=== PATIENT | female | born 1990 | race Caucasian/White ===

== ENCOUNTER 2021-05-08 17:20 | Outpatient (CLI) | payer OTHER ==
[2021-05-08 18:30] LABS: Appearance,Urine Clear (Clear); Bilirubin,Urine Negative (Negative); Blood,Urine Negative (Negative); Color,Urine Light Yellow; Glucose,Urine (UA) Negative (Negative); Ketones,Urine 2+ (Negative); Leukocyte Esterase,Urine Negative (Negative); Nitrite,Urine Negative (Negative); PH, Urine 5.5 (5.0-8.0); Protein,Urine Negative (Negative); Urobilinogen,Urine <2.0 mg/dL (<2.0)
[2021-05-08 18:55] VITALS: BP 123/72; PULSE 118; RESP 18; TEMP 98.2
--- NOTE | 2021-05-14 07:04 | P.MSEPDOC ---
Presenting Problems - Arrival Data Date of Arrival on Unit: 05/08/21 Time of Arrival on Unit: 17:20 Mode of Transport: Ambulatory - Complaint OB-Reason for Admission/Chief Complaint: Pain Comment: lower abd pain. Medical History - Information : 3 Para: 2 Term: 2 : 0 Abortions: Spontaneous or Elective: 0 Number of Living Children: 2 - Gestational Age Gestational Age by REHAN (wks/days): 21 Weeks and 4 Days Review of Systems - Review of Systems Constitutional: No problems Breast: No problems ENT: No problems Cardiovascular: No problems Respiratory: No problems Gastrointestinal: No problems Genitourinary: No problems Musculoskeletal: No problems Neurological: No problems Skin: No problems Vital Signs - Temperature Temperature: 98.2 F Temperature Source: Temporal Artery Scan - Pulse Right Pulse Rate: 118 Pulse Assessment Method: Pulse Oximetry - Respirations Respiratory Rate: 18 Oxygen Delivery Method: Room Air O2 Sat by Pulse Oximetry: 98 - Blood Pressure Right Arm Blood Pressure: 123/72 Blood Pressure Mean: 89 Blood Pressure Source: Automatic Cuff Medical Screen Scoring - Assessment - Baby A NST: Reactive Physician Notification - Physician Notified Physician Notified Date: 05/08/21 Physician Notified Time: 18:10 Physician: Nel Petit Order Received: (UA and oral hydration.) - Notification Comment Comment: Physician called with UA results at 1844. Orders for discharge home with follow up instructions. Maternal Triage Index - Maternal Triage Index Presenting for scheduled procedure w/no complaint: No - Stat/Priority 1 Stat Priority 1: No - Urgent/Priority 2 Urgent Priority 2: No - Prompt/Priority 3 Prompt Priority 3: No - Non-Urgent/Priority 4 Non-Urgent Priority 4: Yes Criteria Met for Priority 4: lower abd pain. Disposition - Disposition OB Disposition: Discharge to home Discharge Date: 05/08/21 Discharge Time: 18:47 I agree with the RN Medical Screening Exam: Yes Case reviewed; plan agreed upon as documented in EMR&OBIX.: Yes Diagnosis: lower abdominal pain in
== END 2021-05-08 18:47 | disposition home or self-care (01) ==
LOC: FBPOP 17:20
PROVIDERS: ATTEND Obstetrics & Gynecology
DX: O26.92 Pregnancy related conditions, unspecified, second trimester (principal); Z3A.21 21 weeks gestation of pregnancy
CPT/HCPCS: 81003; G0463; 99213

== ENCOUNTER 2021-09-07 06:05 | Inpatient (IN) | payer OTHER ==
[2021-09-07] MEDS ORDERED: METHYLERGONOVINE 0.2 MG/ML 1 ML AMP IM PRN (06:20)
[2021-09-07] MEDS ORDERED: OXYTOCIN 10 UNIT/ML 1 ML VIAL IM PRN (06:20)
[2021-09-07] MEDS ORDERED: TERBUTALINE 1 MG/ML VIAL SQ PRN (06:20)
[2021-09-07] MEDS ORDERED: CARBOPROST TROMETHAMINE 250 MCG/ML 1 ML AMP IM PRN (06:20)
[2021-09-07] MEDS ORDERED: LIDOCAINE 0.5% (PF) 5 MG/ML (50 ML SDV) SQ PRN (06:20)
[2021-09-07] MEDS ORDERED: OXYTOCIN 30 UNITS/500 ML NS 30 UNIT in SALINE 1 500ML.BAG IV SCH ×2 (06:30→13:45)
[2021-09-07] MEDS: LACTATED RINGERS 1,000 ML IV SCH ×2 (06:53→11:40)
[2021-09-07 07:11] LABS: Anisocytosis Slight; Basophils % (A) 0 %; Eosinophils % (A) 1 %; HCT 33.6 % (34.0-46.0); Lymphocytes # (A) 2.1 k/uL (1.0-4.8); Lymphocytes % (A) 21 %; MCH 28.9 pg (25.0-35.0); MCHC 32.8 g/dL (31.0-37.0); MCV 88.3 fL (80.0-100.0); Mean Platelet Volume 13.3; Monocytes # (A) 0.5 k/uL (0-1.0); Monocytes % (A) 5 %; Neutrophils # (A) 6.8 k/uL (1.3-7.7); Neutrophils % (A) 71 %; Platelet Count 173 k/uL (150-450); RDW 16.3 % (11.5-15.5); WBC 9.6 k/uL (3.8-10.6)
[2021-09-07 08:31] LABS: Large Platelets Present
[2021-09-07] MEDS ORDERED: ROPIVACAINE 100 MG, fentaNYL (PF). 200 MCG in SODIUM CHLORIDE 0.9% 76 ML EPIDURAL ONE (12:30)
[2021-09-07] MEDS ORDERED: ACETAMINOPHEN TAB 325 MG TAB PO PRN (13:41)
[2021-09-07] MEDS ORDERED: LANOLIN CREAM 5 GM TUBE TOPICAL PRN (13:41)
[2021-09-07] MEDS ORDERED: diphenhydrAMINE 25 MG CAP PO PRN (13:41)
[2021-09-07] MEDS ORDERED: diphenhydrAMINE 50 MG/ML 1 ML VIAL IVP PRN ×2 (13:41)
[2021-09-07] MEDS ORDERED: BENZOCAINE/MENTHOL SPRAY 1 GM/SPRAY AEROSOL TOPICAL PRN (13:41)
[2021-09-07] MEDS ORDERED: HYDROCORTISONE 2.5% RECTAL CREAM 30 GM TUBE RECTAL PRN (13:41)
[2021-09-07] MEDS ORDERED: diphenhydrAMINE 50 MG CAP PO PRN (13:41)
[2021-09-07] MEDS ORDERED: SIMETHICONE 80 MG CHEWABLE PO PRN (13:41)
[2021-09-07] MEDS ORDERED: ZOLPIDEM 5 MG TAB PO PRN (13:41)
--- NOTE | 2021-09-07 13:45 | P.PROBDLV ---
Vaginal Delivery Note - . Vaginal Delivery Note: Findings: Viable female delivered at 1329, weight of 7 lbs. 0 oz., Apgars of 9 and 9 at one and 5 minutes respect weight. This is a 31-year-old 5 para 20-2 at 39-0/7 weeks that presented to labor and delivery for scheduled elective induction of labor. Patient was admitted to labor and delivery and Pitocin induction of labor was begun. Patient made good good progress through labor eventually becoming uncomfortable and requesting epidural placement. Patient did receive epidural was noted be 6 cm. Patient quickly progressed to complete began pushing. Patient was placed in the modified lithotomy position and with good maternal effort patient pushed the baby down to presentation. Amniotic sac was visualized, amniotomy when he was performed and clear fluid was obtained. With continued maternal effort the anterior/posterior shoulder were delivered along with the body which was placed on the maternal abdomen. Spontaneous cry was noted at . After two-minute delay the umbilical cord was doubly clamped and cut, and the placenta was delivered spontaneously intact with a three-vessel cord being noted. The placenta was inspected and found to be intact, small dark clot was appreciated on the maternal side. No vaginal lacerations were appreciated on inspection of the vaginal vault after delivery Patient and tolerated delivery well and are resting comfortably All counts noted be correct 2 at the end of the delivery.
--- NOTE | 2021-09-07 13:46 | P.HPOB ---
History of Present Illness H&P Date: 09/07/21 Chief Complaint: IUP at 39 0 This is a 31-year-old G5 para 2021 at 39 0/7 weeks of gestation that presents for elective induction of labor. Patient has been receiving routine care which has been essentially uncomplicated. Patient notes good movement denies vaginal bleeding or loss of fluid. On bloodwork this patient has a blood type of O+, rubella status immune, RPR nonreactive, HIV negative, group beta strep culture negative. Review of Systems Constitutional: Denies chills, Denies fatigue, Denies fever Ears, nose, mouth and throat: Denies headache Cardiovascular: Reports leg edema Respiratory: Denies dyspnea Gastrointestinal: Denies nausea, Denies vomiting Genitourinary: Reports Past Medical History Past Medical History: No Reported History History of Any Multi-Drug Resistant Organisms: None Reported Past Surgical History: Tonsillectomy Past Anesthesia/Blood Transfusion Reactions: No Reported Reaction Past Psychological History: No Psychological Hx Reported Smoking Status: Never smoker Past Alcohol Use History: None Reported Past Drug Use History: None Reported - Past Family History Mother Family Medical History: Hyperlipidemia, Hypertension Medications and Allergies Home Medications Medication Instructions Recorded Confirmed Type Pnv 11/Iron Fum/Folic Acid/Om3 1 each PO DAILY 05/08/21 09/07/21 History [Virt-Tristian Dha Softgel] Sennosides/Docusate Sodium [Senna 1 each PO DAILY PRN 09/07/21 09/07/21 History Plus 8.6-50 mg Tablet] Allergies Allergy/AdvReac Type Severity Reaction Status Date / Time Penicillins Allergy Rash/Hives Verified 09/07/21 06:19 Exam Osteopathic Statement: *. No significant issues noted on an osteopathic structural exam other than those noted in the History and Physical/Consult. Vital Signs Temp Pulse Resp BP Pulse Ox 09/07/21 06:30 97.5 F L 93 16 131/86 99 Intake and Output 09/06/21 09/07/21 09/07/21 22:59 06:59 14:59 Other: Weight 73.482 kg This is a late entry exam from 8:30 this morning. Targeted physical exam is performed in this date and raw stock drier tender a well-nourished well-developed female in no acute distress, breathing is noted to nonlabored, heart has a regular rate and rhythm, abdomen is gravid and appr opriate for gestational age, on cervical exam she is 3/60/-3 station amniotomy is attempted but unsuccessful. heart tones returned be category 1 and she is corby irregularly. Results Result Diagrams: 09/07/21 06:38 Abnormal Lab Results - Last 24 Hours (Table) 09/07/21 Range/Units 06:38 Hgb 11.0 L (11.4-16.0) gm/dL Hct 33.6 L (34.0-46.0) % RDW 16.3 H (11.5-15.5) % Assessment and Plan (1) Term Current Visit: Yes Status: Acute Code(s): Z34.90 - ENCNTR FOR SUPRVSN OF NORMAL , UNSP, UNSP TRIMESTER SNOMED Code(s): 30556422 Plan: 31-year-old 5 para 20-2 at 39-0/7 weeks that presents for induction of labor. Patient is admitted to labor and delivery and Pitocin induction of labor is begun. Amniotomy was attempted but unsuccessful. Patient does desire epidural when appropriate. Anticipate spontaneous vaginal delivery later today.
[2021-09-07] MEDS: IBUPROFEN 600 MG TAB PO SCH ×2 (18:01→20:52)
[2021-09-07] MEDS: SENNOSIDES-DOCUSATE SODIUM 1 EACH TAB PO SCH (20:22)
[2021-09-08] MEDS: IBUPROFEN 600 MG TAB PO SCH ×2 (00:57→08:14)
[2021-09-08] MEDS: LACTATED RINGERS 1,000 ML IV SCH ×2 (01:13→05:17)
[2021-09-08] MEDS: SENNOSIDES-DOCUSATE SODIUM 1 EACH TAB PO SCH (08:15)
--- NOTE | 2021-09-08 12:41 | P.DS ---
Providers Date of admission: 09/07/21 06:05 Expected date of discharge: 09/08/21 Attending physician: Lubna Anand Primary care physician: Stated None - Discharge Diagnosis(es) (1) Term Current Visit: Yes Status: Acute (2) Status post vaginal delivery Current Visit: Yes Status: Acute Hospital Course: This is a 31-year-old 5 now para 3023 that presented to labor and delivery yesterday at 39-0/7 weeks for elective induction of labor. Patient had been receiving routine care with myself which is been essentially uncomplicated. For full details of this patient please see the dictated history and physical. A she was admitted to labor and delivery and Pitocin induction of labor was begun. Amniotomy was attempted but unable to be performed secondary to high station. Patient progressed through labor eventually becoming uncomfortable and did request epidural placement. Epidural was placed without difficulty by the anesthesia department. Patient got moderately for her contractions. Patient quickly progressed to complete. Patient then had a normal spontaneous vaginal delivery of a viable female infant at 1329, weight of 7 lbs. 0 oz. Apgars of 9 and 9 were given at one and 5 minutes. No vaginal lacerations were appreciated during delivery. Patient's course has been uneventful. On this day #1 she is ambulating and voiding without difficulty. She is tolerating a regular diet without nausea or vomiting. She states her pain is well-controlled. She would like discharge home at 24 hours. Patient Condition at Discharge: Good Plan - Discharge Summary New Discharge Prescriptions: No Action Pnv 11/Iron Fum/Folic Acid/Om3 [Virt-Tristian Dha Softgel] 1 each PO DAILY Sennosides/Docusate Sodium [Senna Plus 8.6-50 mg Tablet] 1 each PO DAILY PRN PRN Reason: Constipation Discharge Medication List Pnv 11/Iron Fum/Folic Acid/Om3 [Virt-Tristian Dha Softgel] 1 each PO DAILY 05/08/21 [History] Sennosides/Docusate Sodium [Senna Plus 8.6-50 mg Tablet] 1 each PO DAILY PRN 09/07/21 [History] Follow up Appointment(s)/Referral(s): Lubna Anand DO [Doctor of Osteopathic Medicine] - 4 Weeks Patient Instructions/Handouts: Vaginal Delivery (DC), Vaginal Delivery (GEN) Discharge Disposition: HOME SELF-CARE
[2021-09-08 13:44] VITALS: BP 114/62; PULSE 89; RESP 18; TEMP 98.2
== END 2021-09-08 13:55 | disposition home or self-care (01) | DRG 807 ==
LOC: 4FBP 06:05
PROVIDERS: ADMIT Obstetrics & Gynecology Obstetrics; ATTEND Obstetrics & Gynecology Obstetrics
PROC: 10E0XZZ Delivery of Products of Conception, External Approach (ICD-10-PCS; principal; 2021-09-07)
PROC: 4A0HXCZ Measurement of Products of Conception, Cardiac Rate, External Approach (ICD-10-PCS; 2021-09-07)
PROC: 3E033VJ Introduction of Other Hormone into Peripheral Vein, Percutaneous Approach (ICD-10-PCS; 2021-09-07)
PROC: 10907ZC Drainage of Amniotic Fluid, Therapeutic from Products of Conception, Via Natural or Artificial Opening (ICD-10-PCS; 2021-09-07)
DX: O80 Encounter for full-term uncomplicated delivery (principal); Z37.0 Single live birth; Z3A.39 39 weeks gestation of pregnancy; Z88.0 Allergy status to penicillin
CPT/HCPCS: 85025; 86850; 86900; 86901

== ENCOUNTER → 2023-01-23 | Outpatient (CLI) | payer OTHER ==
[2023-01-23 16:53] LABS: Basophils # (A) 0.03 X 10*3/uL (0.00-0.10); Basophils % (A) 0.5 %; Eosinophils # (A) 0.08 X 10*3/uL (0.04-0.35); Eosinophils % (A) 1.4 %; HCT 40.5 % (37.2-46.3); Lymphocytes % (A) 25.8 %; MCH 29.1 pg (27.0-32.0); MCHC 32.1 g/dL (32.0-37.0); MCV 90.8 FL (80.0-97.0); Monocytes # (A) 0.54 X 10*3/uL (0.20-1.00); Monocytes % (A) 9.3 %; NRBC Per 100 WBC 0 X 10*3/uL (0.00-0.01); Neutrophils # (A) 3.64 X 10*3/uL (1.80-7.70); Neutrophils % (A) 62.7 %; Platelet Count 195 X 10*3/uL (140-440); RBC 4.46 X 10*6/uL (4.10-5.20); RDW 13.6 % (11.5-14.5); WBC 5.81 X 10*3/uL (4.50-10.00)
== END | disposition home or self-care (01) ==
LOC: LABPAT 09:00
PROVIDERS: ATTEND Obstetrics & Gynecology Obstetrics
DX: Z01.812 Encounter for preprocedural laboratory examination (principal); D27.0 Benign neoplasm of right ovary
CPT/HCPCS: 85025

== ENCOUNTER 2023-01-31 09:09 | Day surgery (SDC) | payer OTHER ==
[~2023-01-31 09:09] MED LIST: DEXAMETHASONE SOD PHOSPHATE 4 MG/ML 1 ML VIAL IV ONE; HYDROmorphone 0.5 MG/0.5 ML SYRINGE IVP PRN; LACTATED RINGERS 1,000 ML IV SCH; ONDANSETRON 4 MG/2 ML VIAL IVP ONE; Pre Op ABX Message 1 EACH MISC MISCELLANE ONE
[2023-01-31] MEDS ORDERED: SCOPOLAMINE 1 MG/72 HR PATCH TRANSDERM ONE (09:38)
[2023-01-31] MEDS ORDERED: KETOROLAC 15 MG/ML 1 ML VIAL ONE (09:58)
[2023-01-31] MEDS ORDERED: SUCCINYLCHOLINE CHLORIDE 200 MG/10 ML VIAL IV ONE (09:58)
[2023-01-31] MEDS ORDERED: PROPOFOL 10 MG/ML 20 ML VIAL IV ONE (09:58)
[2023-01-31] MEDS ORDERED: LIDOCAINE 1% INJ 10MG/ML (20 ML MDV) ONE (09:58)
[2023-01-31] MEDS ORDERED: fentaNYL (PF) 50 MCG/ML 2 ML AMP ONE (09:58)
[2023-01-31] MEDS ORDERED: ROCURONIUM 10 MG/ML (5 ML VIAL) IV ONE (09:58)
[2023-01-31] MEDS ORDERED: GLYCOPYRROLATE 0.2 MG/ML 2 ML VIAL ONE (09:58)
[2023-01-31] MEDS ORDERED: MIDAZOLAM 2 MG/2 ML VIAL ONE (09:58)
[2023-01-31] MEDS ORDERED: NEOSTIGMINE 1 MG/ML 10 ML VIAL ONE (09:58)
[2023-01-31] MEDS ORDERED: BUPIVACAINE (PF) 0.25% 30 ML VIAL SQ ONE (10:35)
--- NOTE | 2023-01-31 11:17 | P.OP ---
Date of Procedure: 01/31/23 Preoperative Diagnosis: Right ovarian dermoid cyst Postoperative Diagnosis: Same Procedure(s) Performed: Operative laparoscopy with right salpingo-oophorectomy Anesthesia: GETA Surgeon: Lubna Anand Estimated Blood Loss (ml): 5 IV fluids (ml): 600 Urine output (ml): 100 Pathology: other (Right ovary and fallopian tube) Condition: stable Disposition: PACU Indications for Procedure: Right ovarian dermoid cyst Operative Findings: Enlarged right ovary, normal pelvic anatomy, left ovary visualized and normal in nature Description of Procedure: Patient was taken back to the operating suite where general anesthesia was obtained without difficulty by the anesthesia department. She was prepped and draped in normal sterile fashion in the dorsal lithotomy position a speculum was placed and a acorn uterine manipulator was placed without difficulty the as a means to miniplate the uterus throughout the procedure. A red rubber catheter was used to drain the bladder and left in place during the procedure. Attention was then turned the patient's abdomen where just above the umbilicus a small skin incision is made. The Veress needle is then placed and CO2 insufflation was allowed to occur once a drop in pressure was noted, approximately 3 L of gas were used to obtain pneumoperituem. At this time a 5 mm trocar and sleeve with the laparoscope in place, is placed through the skin incision and toward the pneumoperitoneum. The above-noted findings are visualized. An additional port site is placed in the right lateral abdomen under direct visualization. This is a 5 mm trocar. The uterus is elevated the right ovary is noted to be enlarged with dermoid cyst. The left ovary is appreciated and found to be normal in nature. An additional port site is placed in the left mid abdomen this is a 10 mm port placed under direct visualization. The right fallopian tube was then elevated the infundibulopelvic ligament was visualized coagulated and transected with the LigaSure. Hemostasis was appreciated. This continued through the uterine ovarian ligament which was coagulated and transected. The ovary was then placed in an Endo Catch bag and removed from the left lateral skin incision. The fascia was extended on the left lateral incision during removal. Inspection of the pedicle site remained revealed hemostasis. All instrument were then removed from the patient's abdomen. The left abdominal incision was inspected hemostasis was noted the fascia was closed in a running fashion with 0 Vicryl. Subcutaneous tissue was noted to be hemostatic and the skin was closed with 4-0 Vicryl. Additional skin incisions were coated closed with 4-0 Vicryl in a subcuticular fashion. Steri-Strips were applied. Band- Aids were applied over the skin incisions. All counts were noted be correct 2 at the end of the procedure. Patient tolerated procedure well and was taken the recovery room awake in stable condition.
[2023-01-31 11:24] VITALS: TEMP 98.4
[2023-01-31] MEDS ORDERED: HYDROmorphone 0.5 MG/0.5 ML SYRINGE IVP ONE ×2 (11:25→11:34)
[2023-01-31] MEDS ORDERED: LACTATED RINGERS 1,000 ML IV ONE (11:54)
[2023-01-31 12:50] VITALS: RESP 20
[2023-01-31] MEDS ORDERED: droPERidol 5 MG/2 ML VIAL IVP ONE (12:52)
[2023-01-31] MEDS ORDERED: Acetaminophen-Codeine 300-30mg TAB ONE (13:19)
[2023-01-31] MEDS ORDERED: Acetaminophen-Codeine 300-30mg TAB PO ONE (13:20)
[2023-01-31 13:46] VITALS: BP 121/77; PULSE 84
== END 2023-01-31 14:01 | disposition home or self-care (01) ==
LOC: OR 09:09
PROVIDERS: ATTEND Obstetrics & Gynecology Obstetrics
DX: D27.0 Benign neoplasm of right ovary (principal); Z88.0 Allergy status to penicillin; Z82.49 Family history of ischemic heart disease and other diseases of the circulatory system; Z79.899 Other long term (current) drug therapy
CPT/HCPCS: 58661; 81025; 88307; J2250; J0330; J1100; J2710; J2405; J2001; J3010; J1885; J2704; J1170; J1790; J0665